=== PATIENT | male | born 1990 | race Caucasian/White ===

== ENCOUNTER 2017-08-04 00:06 | Emergency (ER) | payer BC, OTHER ==
[~2017-08-04] VITALS: Ht 182.9 cm; Wt 91.8 kg
[2017-08-04 00:12] VITALS: TEMP 36.9; Ht 182.9 cm; Wt 91.8 kg
[2017-08-04 00:16] VITALS: O2SAT 98
[2017-08-04 01:01] LABS: CALCIUM 8.6 mg/dl (8.5-10.1); CREATININE 1.2 mg/dl (0.60-1.40)
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
[2017-08-04 06:14] VITALS: BP 115/86; PULSE 84; O2SAT 96
== END 2017-08-04 06:16 | disposition home or self-care (01) ==
LOC: EDBD 00:06 → C.EDB 00:08
DX: F10.129 Alcohol abuse with intoxication, unspecified (principal); Y90.8 Blood alcohol level of 240 mg/100 ml or more; Y92.89 Other specified places as the place of occurrence of the external cause